=== PATIENT | female | born 1985 | race Caucasian/White ===

== ENCOUNTER → 2025-03-04 11:10 | Outpatient (CLI) | payer OTHER, SELFPAY ==
--- NOTE | 2025-03-04 11:13 | DI.RAD.S_ITS ---
PROCEDURE: XR SACRUM COCCYX MIN 3V INDICATIONS: COCCYX PAIN TECHNIQUE: 3 views of the sacrum and coccyx acquired. COMPARISON: None. FINDINGS: Degenerative changes of the lower lumbar spine partially imaged. No radiographic evidence of displaced fracture, or high attenuation soft tissue foreign body. IMPRESSION: Degenerative changes lower lumbar spine. If symptoms persist or worsen, or there is high clinical suspicion of sacrum / coccyx abnormality, MRI could be performed. Dictated by: Leonardo Owens M.D. on 03/04/2025 at 12:04 Approved by: Leonardo Owens M.D. on 03/04/2025 at 12:06
--- NOTE | 2025-03-04 11:13 | DI.RAD.S_ITS ---
PROCEDURE: XR LUMBAR SPINE MIN 4V INDICATIONS: BACK PAIN TECHNIQUE: 5 views of the lumbar spine were acquired, including bilateral oblique views. COMPARISON: None. FINDINGS: Mild facet osseous hypertrophic changes at L4-5 and L5-S1 with suspected mild bilateral neural foraminal narrowing. No gross radiographic evidence pars defect. Lumbar vertebral body heights, alignment within normal limits. Pattern of constipation incidentally noted. IMPRESSION: Mild degenerative changes L4-5 and L5-S1. If symptoms persist or worsen, or there is high clinical suspicion of lumbar abnormality, MRI could be performed. Dictated by: Leonardo Owens M.D. on 03/04/2025 at 12:00 Approved by: Leonardo Owens M.D. on 03/04/2025 at 12:01
== END ==
PROVIDERS: Referring Provider Physical Medicine & Rehabilitation; Visit Provider Physical Medicine & Rehabilitation
DX: M47.816 Spondylosis without myelopathy or radiculopathy, lumbar region (principal); M47.817 Spondylosis without myelopathy or radiculopathy, lumbosacral region; M53.3 Sacrococcygeal disorders, not elsewhere classified; M54.9 Dorsalgia, unspecified
CPT/HCPCS: 72110; 72220

== ENCOUNTER 2025-04-09 07:49 | Outpatient (CLI) | payer OTHER, SELFPAY ==
[2025-04-09] VITALS (7 sets, daily range): BP systolic 128–174; BP diastolic 10–99; PULSE 65–77; RESP 16–18; TEMP 36.7; O2SAT 95–100
[2025-04-09] MEDS: LIDOCAINE 1% 20 ML 5 ML INJ (08:53)
--- NOTE | 2025-04-09 09:24 | PM.PROC.IR.1 ---
Date/Time/Diagnoses Date of procedure: 03/26/25 Time of procedure: 08:45 Pre-procedure diagnosis: Coccydynia Post-procedure diagnosis: same Procedure Notes Procedure: Sacrococcygeal joint injection Indications: Tailbone pain Physician: Vin Hardin Total sedation minutes: 0 Complications: none Procedure in detail & Post-procedure care: Patient is here for the planned procedure today as noted. No significant change since the last office visit. For additional clinical scenario please see those office notes. Focused exam: Vital signs reviewed as charted on intake. Gen: Well developed. No acute distress. CV: RRR, no M/R/G Chest: Non-labored breathing, CTAB. Psych: Alert and well-oriented. Mood/Affect: normal. Patient suitable for the planned procedure today: Yes === The following procedure was performed today: Sacrococcygeal Joint Injection with fluoroscopic guidance ([id number], [id number]) Approach: posterior Soft tissue: [1% lidocaine 0.5 mL] Injectate: 1 mL of the following solution: [1 mL of Depo-Medrol (40mg/mL) in 2 mL 1% lidocaine] Fluoroscopy Agent: Isovue 300-M 0.6 mL Notes: Concordant tenderness at the last segment, mild tenderness at the next last segment; we agreed to inject both. 1.5 in 25 gauge needle was utilized an adequate. Preprocedure pain 4/10, postprocedure pain 0/10. We reviewed the importance of consistent offloading. Procedure: The patient was prepped and draped in a sterile fashion after being placed in the prone position. A PA fluoroscopic view of the sacrococcygeal joint was obtained. A 25 gauge needle was used to anesthetize the skin with the anesthetic noted above. A 25 gauge needle (unless otherwise noted) was inserted with fluoroscopic guidance to target noted, confirmed with multiplanar views. Then, the contrast noted above was injected and a partial arthrogram was obtained. The anesthetic/steroid solution noted above was slowly injected into and around the joint. This was performed for the caudal 2 segments. The needle was withdrawn. Appropriate radiographs were obtained and saved. The patient tolerated the procedure well and was discharged after an appropriate period of observation. If there are any complications, the patient was instructed to call us. The patient is to follow-up with the referring provider in 2-3 weeks/as planned. This note was compiled using voice recognition software and therefore may contain typos. Please contact the author with any questions or concerns.
== END 2025-04-09 09:34 | disposition home or self-care (01) ==
LOC: RAD 07:50
PROVIDERS: PCP Nurse Practitioner; Referring Provider Physical Medicine & Rehabilitation; Visit Provider Physical Medicine & Rehabilitation
DX: M53.3 Sacrococcygeal disorders, not elsewhere classified (principal)
CPT/HCPCS: 20605; 20610; 76000; 77002; J1010